=== PATIENT | male | born 1980 | race Caucasian/White ===

== ENCOUNTER 2019-11-07 09:18 | Emergency (ER) | payer OTHER, SELFPAY ==
[2019-11-07 09:19] VITALS: BP 144/94; PULSE 83; RESP 15; TEMP 36.4; O2SAT 97; BMI 29.7
--- NOTE | 2019-11-07 09:30 | CT_ITS ---
STUDY: CT ABDOMEN AND PELVIS WITHOUT CONTRAST REASON FOR EXAM: Male, 39 years old. INTERMITTENT RT SIDED ABD PAIN RADIATION DOSAGE (If Supplied By Facility): CTDIvol = ( 11.38 ) mGy, DLP = ( 616.96 ) mGycm TECHNIQUE: Transaxial images were obtained from the dome of the diaphragm to the symphysis pubis without oral contrast, and without intravenous contrast. Sagittal and coronal images were reconstructed. Individualized dose optimization techniques were used for this CT. COMPARISON: None. FINDINGS: The visualized lung bases are unremarkable. The visualized portions of the heart are within normal limits. Normal liver. Normal gallbladder and extrahepatic biliary system. Normal spleen. Normal pancreas. Normal bilateral adrenal glands. Normal right kidney. Normal left kidney. Normal visualized stomach. Normal small intestine. Normal colon. The appendix is visualized and appears normal. Normal abdominal aorta. Normal inferior vena cava. Normal retroperitoneum. Normal urinary bladder. Mild fatty density at the right inguinal canal. Normal abdominal wall. Normal osseous structures. CT/Abdomen/Pelvis without Cont IMPRESSION: Mild fatty density at the right inguinal canal. Electronically Signed: Jose Nicole DO at 10:44 EDT Tel [phone], Service support ,
[2019-11-07] MEDS: 0.9% Normal Saline 1,000 ML 125 ML IV (09:37)
--- NOTE | 2019-11-07 09:41 | ED.DCSUM_ITS ---
- ER Visit Summary Date of Service: 11/07/19 Chief Complaint: [Abdominal pain] History of Present Illness: The patient is a 39 M [presents to the emergency department complaint of abdominal pain that started 5 days ago. Patient initially related the pain 15 minutes after eating a fast food breakfast sandwi ch and it lasted about 15 to 20 minutes. Patient described the pain is right upper abdomen and it was sharp. Patient had no nausea or vomiting with it. He has had no fevers. Over last 5 days he has had intermittent pain and not always associated with eating. Has had no blood in the stool or black tarry stools. Patient states that he does have history of GERD and history of peptic ulcer disease. He has been under increased stress related to the COVID-19 outbreak/pandemic. He denies urinary symptoms. Patient did have a bout of the pain this morning and that is what prompted him to come in. He is currently not experiencing any pain.] No history of kidney stones. Physical Examination: [HEENT-PERRLA, EOMI. Cranial nerves II through XII grossly intact. TMs clear. Mucous membranes moist. No adenopathy. Cardiovascular-regular rate and rhythm without murmur or ectopy Lungs-clear to auscultation, chest wall stable without crepitus or subcu emphysema Abdomen-normoactive bowel sounds, soft, nontender, no rebound or rigidity, no peritoneal signs. Extremities-intact ?4, normal range of motion, normal pulses, atraumatic] Test Results: [CBC with it was normal. Chemistries normal. LFTs normal. Urinalysis normal. CT scan of the M pelvis without contrast showed mild fatty density at the right inguinal canal otherwise nothing acute.] Emergency Department Course and Treatment: [ Established on arrival.] Treatment Plan: [Patient advised to use Pepcid or Prevacid [id number] for the next month. Patient states that he has had GERD-like symptoms for about a month. Patient advised to follow-up with primary care physician in 5 to 7 days. Patient advised to return if worsening pain, fever, vomiting, or condition should worsen anyway.] Disposition: [Discharged home in stable condition] Impression: [Abdominal pain-etiology uncertain] This note was generated with [employer] software. It may contain incorrect words, spelling, and punctuation that were not noted in review of the chart prior to signing
[2019-11-07 09:55] LABS: Bacteria 0 SEEN /hpf (None Seen); Mucous, Urine 0 SEEN /hpf (<or=2+); Red Blood Cells-Urine 0 SEEN /hpf (0-5); Squamous Epithelial Cells - UA 0 SEEN /hpf (0-5); White Blood Cells 0 SEEN /hpf (0-5)
[2019-11-07 09:57] LABS: Absolute Neutrophil Count 3.2 X10^3/uL (2.0-7.7); Basophil# 0.04 X10^3/uL; Basophil% 0.6 % (0-1); Eosinophil# 0.18 X10^3/uL; Eosinophils% 2.7 % (0-5); Hematocrit 45.1 % (40-54); Hemoglobin 15.8 g/dL (13.0-16.5); Lymphocyte % 40.1 % (19-41); Mean Corpuscular Hgb 30.2 pg (27.0-32.0); Mean Corpuscular Volume 86.2 fL (80-94); Mean Platelet Vol. 10.3 fl (6.2-12.0); Monocyte# 0.56 X10^3/uL; Monocyte% 8.3 % (0-10); NRBC Flagged by Analyzer 0 % (0-5); Neutrophil # 3.24 X10^3/uL (2.7-7.7); Platelet Count 248 K/mm3 (150-450); RBC Distribution Width CV 11.5 % (11.6-14.6); RBC Distribution Width SD 35.9 fl (35.1-43.9); Red Blood Count 5.23 M/mm3 (4.6-6.2); White Blood Count 6.7 K/mm3 (4.4-11.0)
[2019-11-07 09:59] LABS: Color, Urine Yellow (Yellow); Glucose, Dipstick Normal (Normal); Ketone-Dipstick 5 mg/dl (Negative); Leukocyte Esterase-Dipstick Negative /ul (Negative); Nitrite-Dipstick Negative (Negative); Occult Blood-Urine Negative /ul (Negative); Protein-Dipstick 15 mg/dl (Negative); Specific Gravity, Urine 1.015 (1.002-1.030); Urine Bilirubin Dipstick Negative (Negative); Urine Clarity Clear (Clear); Urine Urobilinogen Normal (Normal); Urine pH 6.5 (5.0 - 8.0)
[2019-11-07 10:09] LABS: ALB/GLOB Ratio 1.2 RATIO (0.9-2.4); AST(SGOT) 21 U/L (15-37); Alanine Aminotransfer ALT/SGPT 39 U/L (16-61); Albumin, Serum 4.3 g/dL (3.2-5.0); Alkaline Phosphatase 61 U/L (45-117); Anion Gap 9 (5-15); BUN 12 mg/dL (7-18); BUN/Creat Ratio 13.4 RATIO (10-20); Calcium,Total 9.1 mg/dL (8.5-10.1); Chloride 103 mmol/L (98-107); EST Glomerular Filtration Rate 101 mL/min (>60); Est Glom Filt Rate - Afr Amer 122 mL/min (>60); Globulin 3.5 g/dL (2.2-4.2); Glucose 114 mg/dL (74-106); Potassium 3.9 mmol/L (3.5-5.1); Protein, Total 7.8 g/dL (6.4-8.2); Sodium Level 139 mmol/L (136-145)
--- NOTE | 2019-11-07 11:00 | DCINST.ED_ITS ---
ED Disposition - Plan for ED Patient: Instructions: ED Unknown Causes of Abdominal Pain Male Referrals: Jay Schultz, QA REVIEWER-C [Primary Care Provider] - 5-7 Days
--- NOTE | 2019-11-07 11:00 | ED.DEP ---
ED Disposition - Plan for ED Patient: Instructions: ED Unknown Causes of Abdominal Pain Male Referrals: Jay Schultz, TI[employer] SHOP MANAGER-C [Primary Care Provider] - 5-7 Days
[2019-11-07 11:06] VITALS: BP 140/94; PULSE 69; RESP 18
== END 2019-11-07 11:08 | disposition home or self-care (01) ==
PROVIDERS: Emergency Provider Emergency Medicine; PCP Nurse Practitioner Family
DX: R10.9 Unspecified abdominal pain (principal); K21.9 Gastro-esophageal reflux disease without esophagitis; Z87.11 Personal history of peptic ulcer disease
CPT/HCPCS: 74176; 80053; 81001; 85025; 96360; 99284; J7030

== ENCOUNTER → 2020-02-22 09:38 | Outpatient (CLI) | payer OTHER, SELFPAY ==
[2020-02-22 12:50] LABS: Vitamin D,25 Hydroxy 18.3 ng/mL
[2020-02-22 13:03] LABS: Anion Gap 8 (5-15); BUN 12 mg/dL (7-18); BUN/Creat Ratio 13.5 RATIO (10-20); Calcium,Total 9.5 mg/dL (8.5-10.1); Chloride 104 mmol/L (98-107); Cholesterol 177 mg/dL (200); Creatinine, Serum 0.89 mg/dL (0.70-1.30); EST Glomerular Filtration Rate 102 mL/min (>60); Est Glom Filt Rate - Afr Amer 124 mL/min (>60); Glucose 103 mg/dL (74-106); High Density Lipoprotein 37 mg/dL; Sodium Level 139 mmol/L (136-145); Triglycerides 189 mg/dL; Very Low Density Lipoprotein 38 mg/dL (5-40)
== END ==
PROVIDERS: PCP Nurse Practitioner Family; Visit Provider Family Medicine
DX: Z00.00 Encounter for general adult medical examination without abnormal findings (principal)
CPT/HCPCS: 36415; 80048; 80061; 82306

== ENCOUNTER 2023-10-26 20:18 | Emergency (ER) | payer OTHER, SELFPAY ==
[2023-10-26 20:19] VITALS: BP 134/104; PULSE 75; RESP 16; TEMP 37; O2SAT 95; BMI 29.9
--- NOTE | 2023-10-26 20:41 | US_ITS ---
EXAM: US ABDOMEN LIMITED, RIGHT UPPER QUADRANT CLINICAL INDICATION: PAIN -- EPIGASTRIC PAIN X 1 DAY TECHNIQUE: Real-time ultrasound of the right upper quadrant with image documentation. COMPARISON: No relevant prior studies available. FINDINGS: LIVER: The liver measures 18 cm. Increased echogenicity of the liver. No intrahepatic biliary ductal dilation. GALLBLADDER: Cholelithiasis. No gallbladder wall thickening is demonstrated. No pericholecystic fluid. Negative sonographic Tellez''s sign. COMMON BILE DUCT: Unremarkable as visualized. The proximal common bile duct is within normal limits for the patient''s age. PANCREAS: Unremarkable as visualized. No focal abnormality is demonstrated in the pancreas. No pancreatic ductal dilatation. RIGHT KIDNEY: Unremarkable. There is no hydronephrosis. No shadowing calculus. No focal lesion or perinephric collection is demonstrated. US/Gallbladder IMPRESSION: 1. Enlarged fatty liver. 2. Cholelithiasis. Electronically Signed: Obinna Torres MD at 23:22 EDT ,
--- NOTE | 2023-10-26 20:42 | ED.VIS.GI ---
HPI HPI - GI History of Present Illness Chief Complaint: Abd Pain Informant: patient Abdominal Pain/Flank Pain Onset: Today Context: Gradual Onset Timing: Continuous Quality: Aching Location: - (Across upper abdomen and into back like a band) Current Severity: Moderate Maximum Severity: Moderate Worsened by: Food Relieved by: Nothing Nausea/Vomiting/Emesis GI Symptom: Negative for Nausea or Vomiting Diarrhea/Melena/Hematochezia GI Symptom: Negative for Diarrhea, Melena or Hematochezia Associated Symptoms Associated Symptoms: Negative for Dysuria, Frequency or Hematuria Narrative Narrative: 43-year-old male states since 2 AM he had pain across his upper abdomen like a band all the way around into his back. Never had pain like this before but he thinks has been having reflux for the past week, all seems to be worse when he lies down maybe a little after meals, she had a poor appetite today because of all of this, pain may be a little worse after meals but not significantly so but he has not eaten much today. Normal bowel movements normal urination no fevers or chills or jaundice. No history of any abdominal surgeries. Does not take anything for reflux. Occasional alcohol intake none in the past week. PFSH PFS Medical History no medical history no medical history Home Medications ?Medication ?Instructions ?Recorded ?Last Taken ?Type NK 11/07/19 Unknown History Allergy/AdvReac Type Severity Reaction Status Date / Time No Known Allergies Allergy Verified 10/26/23 20:22 Social History Smoking Status: Unknown if ever smoked ROS ROS ED Constitutional Constitutional ED: Denies chills or fever(s) Eyes Eyes: Denies change in vision or diplopia ENT ENT ED: Denies rhinorrhea or sore throat Cardiovascular Cardiovascular: Denies chest pain or palpitations Respiratory/Chest Respiratory/Chest: Denies cough or dyspnea Gastrointestinal Gastrointestinal: Reports abdominal pain; Denies diarrhea, melena, nausea or vomiting Genitourinary Genitourinary ED: Denies dysuria or hematuria Musculoskeletal Musculoskeletal: Reports back pain; Denies neck pain Integumentary Denies abscess or rash Neurologic Neurologic: Denies headache(s), paresthesias or weakness Psychiatric Psychiatric: Denies anxiety or suicidal thoughts EXAM Physical Exam Const Vital Signs: 10/26/23 20:19 10/26/23 22:19 Temperature 98.6 F Temperature Source Temporal Pulse Rate 75 58 L Respiratory Rate 16 18 Blood Pressure 134/104 H 139/87 H Blood Pressure Mean 114 104 Pulse Ox 95 98 Oxygen Delivery Method Room Air Room Air Positive well nourished and well developed General Appearance ED: well developed and NAD HEENT Reports moist mucous membranes normocephalic and atraumatic Eyes PERRL and EOMs intact bilaterally Neck full ROM and supple Resp normal respiratory effort and clear to auscultation bilaterally Cardio regular rate, regular rhythm and no murmurs GI non-distended GI Narrative: Mild epigastric and right upper quadrant tenderness no guarding or rebound negative Tellez. Auscultation: normoactive bowel sounds Palpation: soft Back/Spine no CVA tenderness General Back: other FROM Extremity normal to inspection General Extremety ED: Negative for edema, pulses abnormal or tenderness General Extremity: Negative for edema or pulses abnormal Neuro oriented x3, CN's II-XII intact bilaterally and no sensory deficits noted Sensorium / Orientation: awake and alert Motor Exam: strength 5/5 throughout Skin no rashes or lesions noted and no wounds MDM MDM MDM Narrative Medical decision making narrative: I did a bedside ultrasound of the patient's gallbladder, he appears to have multiple large gallstones and mild tenderness with sonographic Tellez. Gallbladder wall is estimated at approximately 0.35 cm. Therefore I am having him formally evaluated by ultrasound and blood work to evaluate for the possibility of acute cholecystitis. Reflux and gastritis are still in the differential along with incidental cholelithiasis. I reviewed the patient's labs, and is well as the ultrasound images and the report which I agree with. Consistent with cholelithiasis no sign of acute cholecystitis on imaging, and his labs are inconsistent with acute cholecystitis. He is doing fine after Toradol, still having mild discomfort but again negative clinical Tellez sign on reexamination. I believe he can safely follow-up with surgery as an outpatient. Will refer him to the on-call surgeon, given appropriate diet restrictions, and reasons to return. He is comfortable with that plan. Lab Data Attestation: I reviewed the patient's lab results. Lab results narrative: Normal liver enzymes, normal lipase, borderline white blood count without left shift. Labs: Laboratory Results - last 24 hr 10/26/23 21:00 WBC 10.0 RBC 4.97 Hgb 14.8 Hct 42.8 MCV 86.1 MCH 29.8 MCHC 34.6 RDW Std Deviation 37.0 RDW Coeff of Tomeka 11.8 Plt Count 221 MPV 10.2 Immature Gran % (Auto) 0.400 Neut % (Auto) 38.1 L Lymph % (Auto) 46.3 H [place] % (Auto) 9.0 Eos % (Auto) 5.1 H Baso % (Auto) 1.1 H Absolute Neuts (auto) 3.8 Absolute Lymphs (auto) 4.62 H Nucleated RBC % 0 Sodium 139 Potassium 3.6 Chloride 105 Carbon Dioxide 29.0 Anion Gap 5 BUN 14 Creatinine 0.94 Estim Creat Clear Calc 130.42 Est GFR (MDRD) Af Amer 113 Est GFR (MDRD) Non-Af 94 BUN/Creatinine Ratio 14.9 Glucose 103 Calcium 9.6 Total Bilirubin 0.50 AST 22 ALT 35 Alkaline Phosphatase 57 Total Protein 7.2 Albumin 3.9 Globulin 3.3 Albumin/Globulin Ratio 1.2 Lipase 30 Radiography Diagnostic Testing: Clinical Impression(s) from Imaging Studies Gallbladder Ultrasound 10/26/23 20:41 IMPRESSION: 1. Enlarged fatty liver. 2. Cholelithiasis. Electronically Signed: Obinna Torres MD at 23:22 EDT , Discharge Plan Triage Chief Complaint: Abd Pain ED Provider: Jai Preston Dx/Rx/DC Orders Clinical Impression: Biliary colic, Cholelithiasis Instructions: ED Diet, Low Fat, ED Gallstones with Biliary Colic Prescriptions: No Action NK Primary Care Provider: Aren Muro Referrals: Aren Muro MD [Primary Care Provider] - Ana Alvarado MD [Med Staff - Active Staff] - As soon as possible Print Language: Latvian Disposition Disposition: Home, Self Care
[2023-10-26 21:03] LABS: Absolute Lymphocyte Count 4.62 X10^3/uL (0.83-4.51); Absolute Neutrophil Count 3.8 X10^3/uL (2.0-7.7); Basophil# 0.11 X10^3/uL; Basophil% 1.1 % (0-1); Eosinophil# 0.51 X10^3/uL; Eosinophils% 5.1 % (0-5); Hematocrit 42.8 % (40-54); Hemoglobin 14.8 g/dL (13.0-16.5); Lymphocyte # 4.62 X10^3/ul (0.83-4.51); Lymphocyte % 46.3 % (19-41); Mean Corp Hgb Conc 34.6 g/dL (32-36); Mean Corpuscular Hgb 29.8 pg (27.0-32.0); Mean Corpuscular Volume 86.1 fL (80-94); Mean Platelet Vol. 10.2 fl (6.2-12.0); NRBC Flagged by Analyzer 0 % (0-5); Neutrophil % 38.1 % (47-70); Platelet Count 221 K/mm3 (150-450); RBC Distribution Width CV 11.8 % (11.6-14.6); Red Blood Count 4.97 M/mm3 (4.6-6.2)
[2023-10-26 21:23] LABS: ALB/GLOB Ratio 1.2 RATIO (0.9-2.4); AST(SGOT) 22 U/L (15-37); Alanine Aminotransfer ALT/SGPT 35 U/L (16-61); Albumin, Serum 3.9 g/dL (3.2-5.0); Alkaline Phosphatase 57 U/L (45-117); Anion Gap 5 (5-15); BUN 14 mg/dL (7-18); BUN/Creat Ratio 14.9 RATIO (10-20); Calcium,Total 9.6 mg/dL (8.5-10.1); Chloride 105 mmol/L (98-107); Creatinine, Serum 0.94 mg/dL (0.70-1.30); EST Glomerular Filtration Rate 94 mL/min (>60); Est Glom Filt Rate - Afr Amer 113 mL/min (>60); Estimated Creatinine Clearance 130.42 ml/min; Globulin 3.3 g/dL (2.2-4.2); Glucose 103 mg/dL (74-106); Lipase 30 U/L (13-75); Potassium 3.6 mmol/L (3.5-5.1); Protein, Total 7.2 g/dL (6.4-8.2); Sodium Level 139 mmol/L (136-145)
[2023-10-26 22:19] VITALS: BP 139/87; PULSE 58; RESP 18; O2SAT 98
[2023-10-26] MEDS: Ketorolac 30 MG/ML Syringe IV (22:21)
[2023-10-26 23:36] VITALS: BP 128/89; PULSE 77; RESP 16; TEMP 36.6; O2SAT 98
== END 2023-10-26 23:36 | disposition home or self-care (01) ==
PROVIDERS: Emergency Provider Emergency Medicine; PCP Family Medicine; Visit Provider Emergency Medicine
DX: K80.70 Calculus of gallbladder and bile duct without cholecystitis without obstruction (principal); M54.9 Dorsalgia, unspecified
CPT/HCPCS: 76705; 80053; 83690; 85025; 96374; 99283; A4216

== ENCOUNTER → 2024-09-02 | Outpatient (CLI) | payer OTHER, SELFPAY ==
[2024-09-02 17:49] LABS: Hematocrit 42.4 % (40-54); Hemoglobin 14.9 g/dL (13.0-16.5); Mean Corp Hgb Conc 35.1 g/dL (32-36); Mean Corpuscular Hgb 30.5 pg (27.0-32.0); Mean Corpuscular Volume 86.7 fL (80-94); Platelet Count 314 K/mm3 (150-450); RBC Distribution Width CV 11.8 % (11.6-14.6); RBC Distribution Width SD 37.3 fl (35.1-43.9); Red Blood Count 4.89 M/mm3 (4.6-6.2); White Blood Count 8.7 K/mm3 (4.4-11.0)
[2024-09-02 18:40] LABS: Anion Gap 12 (5-15); BUN 16 mg/dL (4-19); BUN/Creat Ratio 16.6 RATIO (10-20); Calcium,Total 9.8 mg/dL (7.6-11.0); Carbon Dioxide 22.9 mmol/L (21.0-32.0); Chloride 102 mmol/L (98-108); Creatinine, Serum 0.93 mg/dL (0.70-1.20); EST Glomerular Filtration Rate 105 (>60); Glucose 109 mg/dL (70-99); Potassium 4.1 mmol/L (3.3-5.1); Sodium Level 137 mmol/L (133-145)
== END | disposition home or self-care (01) ==
PROVIDERS: PCP Family Medicine; Visit Provider Nurse Practitioner Family
DX: F41.9 Anxiety disorder, unspecified (principal)
CPT/HCPCS: 36415; 80048; 84443; 85027